=== PATIENT | female | born 1980 | race Caucasian/White ===

== ENCOUNTER 2021-01-20 08:38 | Emergency (ER) | payer SELFPAY ==
[~2021-01-20] VITALS: Ht 165.1 cm; Wt 68.0 kg
[2021-01-20] MEDS ORDERED: KETOROLAC 60MG/2ML VIAL IM ONE (10:00)
[2021-01-20] MEDS ORDERED: TRAM50TA3 MT (11:18)
[2021-01-20] MEDS ORDERED: NAPR-679 MT (11:18)
[2021-01-20 11:46] VITALS: BP 128/78
== END 2021-01-20 11:48 | disposition home or self-care (01) ==
LOC: EDBD 08:38 → ER 08:38
DX: S70.12XA Contusion of left thigh, initial encounter (principal); R03.0 Elevated blood-pressure reading, without diagnosis of hypertension; V03.90XA Pedestrian on foot injured in collision with car, pick-up truck or van, unspecified whether traffic or nontraffic accident, initial encounter; Y93.89 Activity, other specified; Y92.488 Other paved roadways as the place of occurrence of the external cause
CPT/HCPCS: 73552; 73560; 73590; 96372; 99284; J1885